=== PATIENT | female | born 1980 | race Caucasian/White ===

== ENCOUNTER 2016-12-21 09:07 | Emergency (ER) | payer OTHER ==
[~2016-12-21 09:07] MED LIST: IBUP600 PO; OXYC1SOL5 PO; PERI8.6T PO; PREN0.01 PO
--- NOTE | 2016-12-21 09:53 | PD ---
HPI Chief Complaint Cramping, dizzy, nausea Date Seen: Dec 21, 2016 Time Seen: 09:51 Travel History International Travel<30 Days: No Contact w/Intl Traveler<30Days: No Known Affected Area: No History of Present Illness HPI 36-year-old who is at 33 weeks and 1 day comes in complaining of some mild dizziness accompanied by nausea that has been experiencing since yesterday morning. Patient had a lot of activity yesterday and cleaning the house and started feeling a little fatigued than this morning woke up with pelvic pressure and contractions. Patient's had good movement and denies vaginal bleeding or discharge no rupture membranes. Patient's had an uncomplicated thus far. Para: 2 : 3 History Past Medical History Medical History: Denies Significant Hx Obstetric History Obstetric History Spontaneous vaginal delivery 2, 37 weeks and 38 weeks Past Surgical History Narrative Surgical Appendectomy Breast augmentation Surgical History: No Previous Surgery Family History Family History: Negative Social History Alcohol Use: No Tobacco Use: No Substance Abuse: No Allergies-Medications (Allergen,Severity, Reaction): Coded Allergies: Amoxil (Verified Allergy, Severe, Rash, 08/25/04) Home Meds Active Scripts Sennosides-Docusate Sodium (Myra-Colace 8.6-50 mg)1 Tab Tab2 Tab PO Q12H PRN ( CONSTIPATION) #20 TAB Ref 0 Prov:Sejal Myers CNMP 07/21/14 Ibuprofen (Motrin 600 Mg Tab)600 Mg Uae253 Mg PO Q6H PRN ( CRAMPING) # 30 TAB Ref 0 Prov:Sejal Myers CNMP 07/21/14 Oxycodone W/ Acetaminophen (Oxycodone/Acetaminophen 5-325 mg/5Ml)1 Tab Tab2 Tab PO Q4H PRN (PAIN SCALE 5 TO 10) #20 TAB Ref 0 Prov:Jorge Alberto Jean MD 07/19/14 Reported Medications Multivit/Min/Fol Ac/Iron/Pren ( Vit ( Plus)) Tab1 Tab PO DAILY 07/19/14 Review of Systems Except as stated in HPI: all other systems reviewed are Neg Physical Exam Narrative GENERAL: Well-nourished, well-developed patient. SKIN: Warm and dry. HEAD: Normocephalic and atraumatic. EYES: No scleral icterus. No injection or drainage. ENT: No nasal drainage noted. Mucous membranes pink. Airway patent. NECK: Supple, trachea midline. No JVD. CARDIOVASCULAR: Regular rate and rhythm without murmurs, gallops, or rubs. RESPIRATORY: Breath sounds equal bilaterally. No accessory muscle use. ABDOMEN/GI: Abdomen soft, non-tender, bowel sounds present, no rebound, no guarding Gravid to [-32] weeks size Fundal Height: [-] GENITOURINARY: External Genitalia: intact and normal in appearance BUS glands: [Normal-] Cervix: [Posterior-] Dilatation: [-Fingertip] Effacement: [50-] Station: [-3-] Presentation: [-Vertex] Membranes: [intact ] Uterine Contractions: [-Every 3-5] FHT's: Category: [-1] Baseline: [140-] Reactive: [-Moderate] Variability: [Moderate-] Decels: [Absent-] EXTREMITIES: No cyanosis or edema. BACK: Nontender without obvious deformity. No CVA tenderness. NEUROLOGICAL: Awake and alert. Motor and sensory grossly within normal limits. Five out of 5 muscle strength in all muscle groups. Normal speech. Data Data Vital Signs Reviewed: Yes Orders Vital Signs (Adult) .ON ADMISSION (12/21/16 09:49) ^ Labor Status (12/21/16 09:49) Urinalysis - C+S If Indicated (12/21/16 09:49) Diet Liquid (12/21/16 Breakfast) Cbc No Diff, Includes Plts (12/21/16 09:49) Basic Metabolic Panel (Bmp) (12/21/16 09:49) Fibronectin (12/21/16 09:49) Lactated Ringer's 1000 Ml Inj (Lr 1000 M (12/21/16 10:00) MDM Medical Record Reviewed: Yes Plan 36-year-old who is at 33 weeks 1 day fibronectin was sent and while waiting for results will order CBC basic metabolic and hydrate IV No history of labor in the past Care be turned over to Dr. Spencer Diagnosis Diagnosis: Primary Impression: 33 weeks gestation of Additional Impression: uterine contractions in third trimester, antepartum Rosie Mistry MD Dec 21, 2016 09:53
[2016-12-21] MEDS ORDERED: LACTATED RINGER'S 1000 ML INJ 1,000 ML IV ONE (10:00)
[2016-12-21 10:20] LABS: HEMATOCRIT 30.1 % (35.0-46.0); MEAN CELL VOLUME 81.3 FL (80.0-100.0); MEAN CORPUSCULAR HEMOGLOBIN 27.2 PG (27.0-34.0); MEAN CORPUSCULAR HGB CONC 33.5 % (32.0-36.0); PLATELET COUNT 224 TH/MM3 (150-450); RED CELL DISTRIBUTION WIDTH 14.4 % (11.6-17.2); REVIEW FLAG FINAL; WHITE BLOOD COUNT 10.2 TH/MM3 (4.0-11.0)
[2016-12-21 10:36] LABS: BACTERIA, URINE RARE /hpf; BLOOD, URINE NEG (NEG); COMMENT (UR) CULT NOT INDICATED; CULTURE IF INDICATED CULT NOT INDICATED; GLUCOSE,URINE NEG (NEG); KETONE, URINE TRACE mg/dL (NEG); NITRITE,URINE NEG (NEG); PH, URINE 7.5 (5.0-8.5); SQUAMOUS EPITHELIAL CELL URINE 1 /hpf (0-5); URINE COLOR YELLOW (YELLW/STRAW)
[2016-12-21 10:54] LABS: BICARBONATE 25.8 MEQ/L (21.0-32.0); POTASSIUM 4.2 MEQ/L (3.5-5.1)
[2016-12-21] MEDS ORDERED: TERBUTALINE INJ 1 MG/ML AMP SQ ONE (11:15)
[2016-12-21] MEDS ORDERED: TERBUTALINE INJ 1 MG/ML AMP ONE (11:15)
[2016-12-21 11:18] VITALS: BP 123/70; PULSE 94
--- NOTE | 2016-12-21 11:37 | PD ---
History of Present Illness Date Seen: Dec 21, 2016 History of Present Illness This is a 36y/o at 33w1d who presented to the [facility] for evaluation of contractions. She was seen by Dr. Mistry this morning. Labs all negative: FFN , chem, h/h 03/20. Cervix: FT/50/-3. Pt with few irregular contractions but is in noticeable pain. Terbutaline given times 1. Pt felt better and then d/c home. She is currently not working due to PUPPs diagnosis. F/u with Dr. Arce as scheduled. Chantal Spencer MD Dec 21, 2016 11:37
== END 2016-12-21 15:31 | disposition home or self-care (01) ==
LOC: HOBED 09:07
DX: O47.03 False labor before 37 completed weeks of gestation, third trimester (principal); Z3A.33 33 weeks gestation of pregnancy
CPT/HCPCS: 59025; 80048; 81001; 82731; 85027; 96372; 99284; J3105; J7120

== ENCOUNTER 2017-01-24 12:35 | Inpatient (IN) | payer OTHER ==
[2017-01-24] VITALS (34 sets, daily range): BP systolic 97–161; BP diastolic 55–100; PULSE 78–104; RESP 14–18; TEMP 97.8–98.3
[~2017-01-24] VITALS: Ht 165.1 cm; Wt 83.0 kg
--- NOTE | 2017-01-24 13:43 | MH ---
cc: CONNOR LOZANO DATE OF ADMISSION 01/24/2017 DATE OF 1980 REASON FOR ADMISSION A 38 and zero 7-week intrauterine with mild elevated blood pressure, oligohydramnios with PELON less than 5 and PUPPS. HISTORY OF PRESENT CONDITION Ms. Mckeon is a pleasant 36-year-old white female 3, para 2-0-0-2 with LMP 05/05/2016 and EDC 02/07/17 by 8-week ultrasound currently at 38 and 07 weeks. She was seen by Dr. Arce exclusively during this . She has had two babies at 37 and 38 weeks both at [place] both with our group and both complicated by severe urticarial papules of . This is also complicated by this chronic condition and she is having severe pruritus and discomfort with excoriations from scratching. Her blood pressure today is mildly elevated at 140/82. A biophysical profile was performed which was 6/8. The zero parameter been for an PELON less than 4. There was breathing motion tones. Estimated weight of this is about 7-1/2 pounds and her pelvis is proven. A care was without diabetes, hypertension or labor. Her blood type is A+. Her hemoglobin was 11.5 and then 10.1. Her Pap smear was normal. She is immune to Tamazight measles and chickenpox. She has negative serology and cell free DNA ruled out aneuploidy. She was hepatitis C negative and drug screen negative and normal. Group B strep was negative and a 1-hour Glucola was 121. Her only surgeries have been breast implants and an appendix removal. ALLERGIES HER ALLERGIES ARE TO AMOXICILLIN. MEDICATIONS During the : 1. Antipruritic 2. Terazol 3. Z-Anthony x1 Her weight gain was from 136-183 PHYSICAL EXAM On physical exam, she is a well-developed, well-nourished white female in no acute distress other than itching. NECK: She has no thyroid enlargement. LUNGS: Her lungs are clear. HEART: Her heart is regular. ABDOMEN: Fundus is term. PELVIC: Cervix is 1-2 cm, thin, but very posterior and to her left. The baby is low, vertex and estimated weight is 7-8 pounds in a pelvis that is clinically adequate. EXTREMITIES: She has minimal edema. Dermatology A lot of papules on her abdomen. Exam is otherwise normal. IMPRESSION A 38-week IUP with oligohydramnios, PUPP and mild elevation of blood pressure. Cervix is minimally inducible, but she is a multip who has had rapid deliveries after rupture of membranes in the past. We anticipate a vaginal delivery. Thank you MD REED Hyman/JOSÉ /12:11 PM /1:36 PM MTDNahun
[2017-01-24] MEDS ORDERED: LIDOCAINE HCL 1% 50 ML VIAL I-DERMAL PRN (13:45)
[2017-01-24] MEDS: LACTATED RINGER'S 1000 ML INJ 1,000 ML IV SCH ×2 (13:45→21:42)
[2017-01-24] MEDS ORDERED: CITRIC ACID-SODIUM CITRATE LIQ 30 ML UDC PO SCH (13:45)
[2017-01-24] MEDS ORDERED: LACTATED RINGER'S 1000 ML INJ 1,000 ML IV PRN (13:45)
[2017-01-24] MEDS ORDERED: SODIUM CHLORID 0.9% 500 ML INJ 500 ML IV PRN (13:45)
[2017-01-24] MEDS ORDERED: LIDOCAINE HCL 1% 50 ML VIAL INFIL PRN (13:45)
[2017-01-24] MEDS ORDERED: OXYTOCIN 30 UNITS-500ML PREMIX 500 ML IV ONE (13:45)
[2017-01-24] MEDS ORDERED: MINERAL OIL 10 ML VIAL TOPICAL PRN (13:45)
[2017-01-24] MEDS ORDERED: SODIUM CHLOR 0.9% 1000 ML INJ 1,000 ML IV PRN (14:05)
[2017-01-24 14:10] LABS: AUTOMATED NEUTROPHIL # 7.6 TH/MM3 (1.8-7.7); BASOPHIL % 0.3 % (0.0-2.0); EOSINOPHIL # 0.2 TH/MM3 (0-0.4); EOSINOPHIL % 1.7 % (0.0-4.0); HEMATOCRIT 29.9 % (35.0-46.0); HEMO FLAGS DIFF FINAL; LYMPH % 21.6 % (9.0-44.0); LYMPHOCYTE # 2.4 TH/MM3 (1.0-4.8); MEAN CELL VOLUME 79.7 FL (80.0-100.0); MEAN CORPUSCULAR HEMOGLOBIN 25.3 PG (27.0-34.0); MEAN CORPUSCULAR HGB CONC 31.8 % (32.0-36.0); MONO % 6.5 % (0.0-8.0); NEUT % 69.9 % (16.0-70.0); PLATELET COUNT 284 TH/MM3 (150-450); RED BLOOD COUNT 3.75 MIL/MM3 (4.00-5.30); WHITE BLOOD COUNT 10.9 TH/MM3 (4.0-11.0)
[2017-01-24 14:13] LABS: BLOOD, URINE MOD (NEG); COMMENT (UR) CULTURE INDICATED; CULTURE IF INDICATED CULTURE INDICATED; GLUCOSE,URINE NEG (NEG); KETONE, URINE NEG (NEG); NITRITE,URINE NEG (NEG); PH, URINE 6.5 (5.0-8.5); RENAL EPITHELIAL CELLS <1 /hpf; SQUAMOUS EPITHELIAL CELL URINE 3 /hpf (0-5); URINE COLOR LIGHT-YELLOW (YELLW/STRAW)
[2017-01-24 14:14] LABS: BACTERIA, URINE MOD /hpf
[2017-01-24] MEDS ORDERED: OXYTOCIN 30 UNITS-500ML PREMIX 500 ML IV SCH ×2 (15:15→21:30)
[2017-01-24 15:37] LABS: ALT (GPT) 18 U/L (10-53); ANION GAP 9 MEQ/L (5-15); AST (GOT) 14 U/L (15-37); BICARBONATE 22.9 MEQ/L (21.0-32.0); BLOOD UREA NITROGEN 8 MG/DL (7-18); CHLORIDE 105 MEQ/L (98-107); GLOMERULAR FILTRATION RATE 119 ML/MIN (>89); POTASSIUM 3.6 MEQ/L (3.5-5.1); SODIUM (NA) 137 MEQ/L (136-145); URIC ACID 4.2 MG/DL (2.6-6.0)
[2017-01-24 15:38] LABS: ALKALINE PHOSPHATASE 122 U/L (45-117); TOTAL BILIRUBIN ADULT 0.2 MG/DL (0.2-1.0)
[2017-01-24] MEDS ORDERED: MEASLES, MUMPS, RUBELLA VACCINE 0.5 ML VIAL SQ ONE (16:00)
[2017-01-24] MEDS ORDERED: DIPHTH/TETANUS/ACEL PERTUSSIS (BOOSTER) 0.5 ML VIAL/PFS IM ONE (16:00)
[2017-01-24] MEDS ORDERED: fentaNYL 2MCG-BUPIV 0.125% INJ 100 ML ONE (18:15)
[2017-01-24] MEDS ORDERED: ePHEDrine/NS 25 MG/5 ML SYR ONE (18:15)
--- NOTE | 2017-01-24 18:23 | PD.LABORPN ---
Subjective Subjective comfortable with irregular UCs 3/80/posterior and to left arom clear strip category one Objective Vital Signs Vital Signs Date Time Temp Pulse Resp B/P (MAP) Pulse Ox O2 Delivery O2 Flow Rate FiO2 01/24/17 17:18 91 18 125/81 (96) 01/24/17 15:44 18 01/24/17 15:43 88 141/85 (103) Weeks Gestation: 38 Gest Age Assessed Date: Jan 24, 2017 Gest Age Assessed Time: 09:00 Pt started active labor?: Yes Active labor start date: Jan 24, 2017 Active labor start time: 12:00 Medical induction of labor?: Yes Medical induction start date: Jan 24, 2017 Medical induction start time: 12:00 Artificial rupture of membrane: Yes Artificial ROM date: Jan 24, 2017 Artifical ROM time: 18:00 Assessment/Plan Assessment and Plan anticipate Deanna Torres MD Jan 24, 2017 18:23
[2017-01-24] MEDS ORDERED: CETI10CH CHEW (18:43)
--- NOTE | 2017-01-24 21:27 | PD.OB.DELI ---
Weeks gestation: 38 Gest age assessed date: Jan 24, 2017 Gest age assessed time: 09:00 Pt started active labor?: Yes Active labor start date: Jan 24, 2017 Active labor start time: 12:00 Medical induction of labor?: Yes Medical induction start date: Jan 24, 2017 Medical induction start time: 12:00 Artificial rupture of membrane: Yes Artificial ROM date: Jan 24, 2017 Artifical ROM time: 18:00 Anesthesia: Epidural Episiotomy: None Vaginal Delivery: Normal Presentation: Occiput anterior Nuchal Cord: None Delayed cord clamping (45 sec): Yes : Male Delivery date: Jan 24, 2017 Delivery time: 21:00 One Minute : 9 Five Minute : 9 Placenta: Spontaneous delivery Laceration: No lacerations Estimated blood loss: 200 Additional Information mole removed from right labia -- has been present many years with no change and not sent to pathology Deanna Cordero MD Jan 24, 2017 21:27
--- NOTE | 2017-01-24 21:29 | HHI.DCPOC ---
Discharge Care Plan Report Symptoms to Your Doctor -Temperature above 100.5 degrees -Redness, of incision or excessive or foul smelling drainage -Unusual pain or calf pain -Increased vaginal bleeding -Painful or difficulty urinating -Feelings of extreme sadness or anxiety after 2 weeks Goals to Promote Your Health * To prevent worsening of your condition and complications * To maintain your health at the optimal level Directions to Meet Your Goals Take your medications as prescribed Follow your dietary instruction Follow activity as directed Ensure plenty of rest for recovery Drink fluids for hydration Keep your appointments as scheduled Take your immunizations and boosters as scheduled If your symptoms worsen call your PCP, if no PCP go to Urgent Care Center or Emergency Room Smoking is Dangerous to Your Health. Avoid second hand smoke Call the 24-hour crisis hotline for domestic abuse at Deanna Cordero MD Jan 24, 2017 21:29
[2017-01-24] MEDS ORDERED: ZOLPIDEM TARTRATE 5 MG TAB PO PRN (21:30)
[2017-01-24] MEDS ORDERED: ACETAMINOPHEN 325 MG TAB PO PRN (21:30)
[2017-01-24] MEDS ORDERED: SODIUM CHLORIDE 0.9% FLUSH 10 ML FLUSH IV FLUSH PRN (21:30)
[2017-01-24] MEDS ORDERED: DOCUSATE SODIUM 50 MG/SENNA 8.6 MG TAB PO PRN (21:30)
[2017-01-24] MEDS ORDERED: BENZOCAINE 20% TOPICAL SPRAY 60 ML CAN TOPICAL PRN (21:30)
[2017-01-24] MEDS ORDERED: IBUPROFEN 600 MG TAB PO PRN (21:30)
[2017-01-24] MEDS ORDERED: ALUMINUM/MAGNESIUM/SIMETH 30 ML CUP PO PRN (21:30)
[2017-01-24] MEDS ORDERED: WITCH HAZEL 50%/GLYCERIN 12.5% 40 PAD JAR TOPICAL PRN (21:30)
[2017-01-24] MEDS ORDERED: ONDANSETRON ODT 4 MG TAB PO PRN (21:30)
[2017-01-25] VITALS (9 sets, daily range): BP systolic 112–158; BP diastolic 66–103; PULSE 82–90; RESP 17–18; TEMP 97.8–97.9; O2SAT 99
--- NOTE | 2017-01-25 08:11 | HHI.OB ---
Subjective Post Day: 1 Remarks s/p overnight Objective Vitals/I&O Vital Signs Date Time Temp Pulse Resp B/P (MAP) Pulse Ox O2 Delivery O2 Flow Rate FiO2 01/25/17 00:20 97.9 01/25/17 00:20 82 18 133/81 (98) 99 01/24/17 23:10 16 01/24/17 23:00 78 130/78 (95) 01/24/17 22:40 80 15 01/24/17 22:40 119/79 (92) 01/24/17 22:10 81 124/82 (96) 01/24/17 22:04 18 01/24/17 22:04 15 01/24/17 21:55 18 01/24/17 21:46 90 128/80 (96) 01/24/17 21:37 17 01/24/17 21:30 85 116/74 (88) 01/24/17 21:25 98.3 01/24/17 21:15 18 01/24/17 21:15 84 115/74 (88) 01/24/17 21:00 85 01/24/17 20:35 82 01/24/17 20:31 79 97/55 (69) 01/24/17 20:30 81 01/24/17 20:05 88 01/24/17 20:00 91 01/24/17 20:00 86 01/24/17 19:40 90 01/24/17 19:35 88 01/24/17 19:30 96 103/56 (72) 01/24/17 19:30 102 01/24/17 19:15 104 01/24/17 19:15 102 118/65 (82) 01/24/17 19:09 97.8 14 01/24/17 19:00 87 01/24/17 19:00 97 145/78 (100) 01/24/17 18:50 97 01/24/17 18:45 98 01/24/17 18:45 97 154/88 (110) 01/24/17 18:43 97.9 01/24/17 18:40 100 01/24/17 18:40 99 151/86 (107) 01/24/17 18:37 18 01/24/17 18:35 96 137/90 (106) 01/24/17 18:35 102 01/24/17 18:30 97 01/24/17 18:30 98 18 153/100 (117) 01/24/17 18:26 94 161/97 (118) 01/24/17 18:15 18 01/24/17 17:18 91 18 125/81 (96) 01/24/17 15:44 18 01/24/17 15:43 88 141/85 (103) Objective Remarks GENERAL: Well-nourished, well-developed patient. CARDIOVASCULAR: Regular rate and rhythm without murmurs, gallops, or rubs. RESPIRATORY: Breath sounds equal bilaterally. No accessory muscle use. ABDOMEN/GI: Abdomen soft, non-tender. Fundus: Firm, non-tender at umbilicus. GENITOURINARY: Light to moderate bleeding. EXTREMITIES: No cyanosis or edema, non-tender, without signs of DVT. Medications and IVs Current Medications Medications (Trade) Dose Ordered Sig/Iram Route Start Time Stop Time Status Last Admin Lactated Ringer's 1,000 ml @ 125 mls/hr Q8H IV 01/24/17 13:45 01/24/17 13:45 Lactated Ringer's 1,000 ml @ 3,000 mls/hr Q20M PRN IV 01/24/17 13:45 01/24/17 18:52 Sodium Chloride 500 ml @ 1,000 mls/hr ONCE PRN IV 01/24/17 13:45 01/25/17 13:44 Sodium Chloride 1,000 ml @ 100 mls/hr Q10H PRN IV 01/24/17 14:05 (Xylocaine 1% Inj (50 ml)) 0.1 ml UNSCH X1 PRN I-DERMAL 01/24/17 13:45 01/27/17 13:44 (Bicitra Liq) 30 ml NARROW FABRIC LOOM FIXER PO 01/24/17 13:45 01/28/17 13:44 (fentaNYL INJ) 50 mcg Q1H PRN IV PUSH 01/24/17 13:45 (fentaNYL INJ) 100 mcg Q1H PRN IV PUSH 01/24/17 13:45 (Xylocaine 1% Inj (50 ml)) 10 ml UNSCH X1 PRN INFIL 01/24/17 13:45 01/26/17 13:44 (Muri-Lube Oil) 10 ml UNSCH PRN TOPICAL 01/24/17 13:45 Oxytocin 500 ml @ 0 mls/hr TITRATE IV 01/24/17 15:15 01/24/17 15:47 (NS Flush) 2 ml BID IV FLUSH 01/25/17 09:00 (NS Flush) 2 ml UNSCH PRN IV FLUSH 01/24/17 21:30 (Tylenol) 650 mg Q4H PRN PO 01/24/17 21:30 (Motrin) 600 mg Q6H PRN PO 01/24/17 21:30 01/24/17 21:55 (Americaine 20% Top Spr) 1 spray Q4H PRN TOPICAL 01/24/17 21:30 01/24/17 21:55 (Tucks Pads) 1 applic QID PRN TOPICAL 01/24/17 21:30 01/24/17 21:56 (Myra-Colace) 2 tab Q12H PRN PO 01/24/17 21:30 (Ambien) 5 mg HS PRN PO 01/24/17 21:30 (Mag-Al Plus Susp Liq) 15 ml Q8H PRN PO 01/24/17 21:30 (Zofran Odt) 4 mg Q6H PRN PO 01/24/17 21:30 Assessment/Plan Problem List: (1) (normal spontaneous vaginal delivery) ICD Codes: O80 - (normal spontaneous vaginal delivery) Status: Acute Assessment and Plan PPD#1 routine supportive care <12 hours, will be for circ but not yet cleared, hopefully tmrw routine d/c planning for tmrw Discharge Planning 01/26/17 Rahel Beck MD Jan 25, 2017 08:11
[2017-01-25] MEDS ORDERED: SODIUM CHLORIDE 0.9% FLUSH 10 ML FLUSH IV FLUSH SCH (09:00)
[2017-01-25] MEDS: LABETALOL HCL 100 MG TAB PO SCH (18:03)
[2017-01-26 09:00] VITALS: BP 155/99; PULSE 98; RESP 18; TEMP 97.7; O2SAT 98
[2017-01-26] MEDS: LABETALOL HCL 100 MG TAB PO SCH (09:10)
[2017-01-26] MEDS ORDERED: LABE100T2 PO (11:50)
--- NOTE | 2017-01-26 11:53 | HHI.OB ---
Subjective Post Day: 2 Remarks Elevated blood pressures yesterday and today with no significant symptoms. Consistent with mild pre eclampsia diagnosed this week. Now on labetolol. Desires circumcision in office when baby less spitting no complaints. Objective Vitals/I&O Vital Signs Date Time Temp Pulse Resp B/P (MAP) Pulse Ox O2 Delivery O2 Flow Rate FiO2 01/26/17 09:00 97.7 98 18 98 01/26/17 09:00 155/99 (117) 01/25/17 22:45 97.8 85 17 01/25/17 22:45 112/66 (81) 01/25/17 17:50 90 138/90 (106) 01/25/17 15:41 143/97 (112) 01/25/17 15:00 143/97 (112) 01/25/17 13:44 142/97 (112) 01/25/17 13:42 158/103 (121) 01/25/17 12:43 144/88 (106) Objective Remarks GENERAL: Well-nourished, well-developed patient. CARDIOVASCULAR: Regular rate and rhythm without murmurs, gallops, or rubs. RESPIRATORY: Breath sounds equal bilaterally. No accessory muscle use. ABDOMEN/GI: Abdomen soft, non-tender. Fundus: Firm, non-tender at umbilicus. GENITOURINARY: Light to moderate bleeding. EXTREMITIES: No cyanosis or edema, non-tender, without signs of DVT. Medications and IVs Current Medications Medications (Trade) Dose Ordered Sig/Iram Route Start Time Stop Time Status Last Admin Lactated Ringer's 1,000 ml @ 125 mls/hr Q8H IV 01/24/17 13:45 01/24/17 13:45 Lactated Ringer's 1,000 ml @ 3,000 mls/hr Q20M PRN IV 01/24/17 13:45 01/24/17 18:52 Sodium Chloride 1,000 ml @ 100 mls/hr Q10H PRN IV 01/24/17 14:05 (Xylocaine 1% Inj (50 ml)) 0.1 ml UNSCH X1 PRN I-DERMAL 01/24/17 13:45 01/27/17 13:44 (Bicitra Liq) 30 ml THREAD TOOL GRINDER SET UP OPERATOR PO 01/24/17 13:45 01/28/17 13:44 (fentaNYL INJ) 50 mcg Q1H PRN IV PUSH 01/24/17 13:45 (fentaNYL INJ) 100 mcg Q1H PRN IV PUSH 01/24/17 13:45 (Xylocaine 1% Inj (50 ml)) 10 ml UNSCH X1 PRN INFIL 01/24/17 13:45 01/26/17 13:44 (Muri-Lube Oil) 10 ml UNSCH PRN TOPICAL 01/24/17 13:45 Oxytocin 500 ml @ 0 mls/hr TITRATE IV 01/24/17 15:15 01/24/17 15:47 (NS Flush) 2 ml BID IV FLUSH 01/25/17 09:00 (NS Flush) 2 ml UNSCH PRN IV FLUSH 01/24/17 21:30 (Tylenol) 650 mg Q4H PRN PO 01/24/17 21:30 (Motrin) 600 mg Q6H PRN PO 01/24/17 21:30 01/24/17 21:55 (Americaine 20% Top Spr) 1 spray Q4H PRN TOPICAL 01/24/17 21:30 01/24/17 21:55 (Tucks Pads) 1 applic QID PRN TOPICAL 01/24/17 21:30 01/24/17 21:56 (Myra-Colace) 2 tab Q12H PRN PO 01/24/17 21:30 (Ambien) 5 mg HS PRN PO 01/24/17 21:30 (Mag-Al Plus Susp Liq) 15 ml Q8H PRN PO 01/24/17 21:30 (Zofran Odt) 4 mg Q6H PRN PO 01/24/17 21:30 (Trandate) 100 mg Q12H PO 01/25/17 17:00 01/26/17 09:10 Assessment/Plan Problem List: (1) (normal spontaneous vaginal delivery) ICD Codes: O80 - (normal spontaneous vaginal delivery) Status: Acute Assessment and Plan PPD#2 routine supportive [facility] with labetolol RTO 2 weeks for circ and BP check Discharge Planning 01/26/17 Deanna Cordero MD Jan 26, 2017 11:53
== END 2017-01-26 13:00 | disposition home or self-care (01) | DRG 775 ==
LOC: H2EA 12:35 → H1EA 23:41
PROVIDERS: ADMIT Obstetrics & Gynecology; ATTEND Obstetrics & Gynecology
PROC: 10E0XZZ Delivery of Products of Conception, External Approach (ICD-10-PCS; principal; 2017-01-24)
PROC: 0UBMXZZ Excision of Vulva, External Approach (ICD-10-PCS; 2017-01-24)
PROC: 10907ZC Drainage of Amniotic Fluid, Therapeutic from Products of Conception, Via Natural or Artificial Opening (ICD-10-PCS; 2017-01-24)
PROC: 00HU33Z Insertion of Infusion Device into Spinal Canal, Percutaneous Approach (ICD-10-PCS; 2017-01-24)
PROC: 3E0R3CZ (ICD-10-PCS; 2017-01-24)
DX: O41.03X0 Oligohydramnios, third trimester, not applicable or unspecified (principal); D28.0 Benign neoplasm of vulva; O26.893 Other specified pregnancy related conditions, third trimester; Z37.0 Single live birth; Z3A.38 38 weeks gestation of pregnancy; O14.04 Mild to moderate pre-eclampsia, complicating childbirth; L29.9 Pruritus, unspecified; Z98.82 Breast implant status; O09.529 Supervision of elderly multigravida, unspecified trimester
CPT/HCPCS: 59025; 80053; 81001; 84550; 85025; 87086; 90715; J2590; J7120